=== PATIENT | female | born 1995 | race Caucasian/White ===

== ENCOUNTER → 2020-07-05 14:39 | Outpatient (BNVA) | payer BC, SELFPAY | PROVIDERS: Visit Provider Obstetrics & Gynecology | DX: N76.0 Acute vaginitis (principal); Z12.4 Encounter for screening for malignant neoplasm of cervix; Z11.3 Encounter for screening for infections with a predominantly sexual mode of transmission; B96.89 Other specified bacterial agents as the cause of diseases classified elsewhere | CPT/HCPCS: 87210; 87491; 87591; 88175 ==

== ENCOUNTER → 2021-03-20 13:04 | Outpatient (BNVA) | payer BC, SELFPAY | PROVIDERS: Visit Provider Obstetrics & Gynecology | DX: Z34.90 Encounter for supervision of normal pregnancy, unspecified, unspecified trimester (principal) | CPT/HCPCS: 81025; 84702 ==

== ENCOUNTER → 2021-04-04 14:22 | Outpatient (BNVA) | payer BC, SELFPAY | PROVIDERS: Visit Provider Obstetrics & Gynecology | DX: O20.9 Hemorrhage in early pregnancy, unspecified (principal) | CPT/HCPCS: 84702; 85025; 86850; 86900 ==

== ENCOUNTER 2021-04-07 16:51 | Outpatient (CLI) | payer BC, SELFPAY ==
[2021-04-07 18:03] LABS: HCG Quantitative 72.73 mIU/mL
== END 2021-04-07 16:52 | disposition home or self-care (01) ==
PROVIDERS: Visit Provider Obstetrics & Gynecology
DX: O20.0 Threatened abortion (principal)
CPT/HCPCS: 36415; 84702

== ENCOUNTER 2021-04-09 08:19 | Outpatient (CLI) | payer BC, SELFPAY ==
--- NOTE | 2021-04-09 08:29 | US_ITS ---
WS: [id number] TRANSABDOMINAL PELVIC AND TRANSVAGINAL PELVIC ULTRASOUND HISTORY: O26.91 - related conditions, unspecified, vaginal bleeding. COMPARISON: None available. Uterus: 8.3 cm x 5.5 cm x 4.2 cm. Normal size anteverted uterus. Cervix is closed. No fibroid or mass . Endometrium: 0.5 cm. Normal endometrium. No intrauterine gestation. No thickening of the endometrium or hyperplasia. Right ovary: 2.3 cm x 2.8 cm x 1.0 cm. Normal size and echogenicity. No adnexal mass. Left ovary: 3.0 cm x 1.4 cm x 3.2 cm. Normal size and echogenicity. No adnexal masses. Very tiny amount of free fluid in the cul-de-sac. US/US pelvic with transvaginal IMPRESSION: 1. No intrauterine gestation identified. 2. No adnexal mass. 3. Normal pelvic ultrasound.
[2021-04-09 10:31] LABS: Alanine Aminotransferase 24 U/L (0-33); Alkaline Phosphatase 69 IU/L (35-105); Anion Gap 10.8 (5-19); Aspartate Amino Transferase 21 U/L (0-32); Blood Urea Nitrogen 7 mg/dL (6-20); Calcium 8.4 mg/dL (8.5-10.5); Carbon Dioxide 25 mmol/L (22-29); Chloride 104 mmol/L (98-107); Globulin 2.8 g/dL (1.3-4.6); Glucose 100 mg/dL (65-115); Osmolality Calculated 280 mOsm/kg (285-295); Potassium 3.8 mmol/L (3.5-5.1); Sodium 136 mmol/L (136-145); Total Bilirubin 0.3 mg/dL (0.15-1.2); Total Protein 6.8 g/dL (6.6-8.7)
== END 2021-04-09 08:20 | disposition home or self-care (01) ==
PROVIDERS: Visit Provider Obstetrics & Gynecology
DX: O26.91 Pregnancy related conditions, unspecified, first trimester (principal); N93.9 Abnormal uterine and vaginal bleeding, unspecified
CPT/HCPCS: 36415; 76830; 76856; 80053; 84702

== ENCOUNTER → 2021-04-14 16:15 | Outpatient (BNVA) | payer BC, SELFPAY | PROVIDERS: Visit Provider Obstetrics & Gynecology | DX: O03.9 Complete or unspecified spontaneous abortion without complication (principal) | CPT/HCPCS: 84702 ==

== ENCOUNTER → 2021-04-24 08:11 | Outpatient (BNVA) | payer BC, SELFPAY | PROVIDERS: Visit Provider Obstetrics & Gynecology | DX: O03.9 Complete or unspecified spontaneous abortion without complication (principal) | CPT/HCPCS: 84702 ==

== ENCOUNTER → 2021-04-30 09:57 | Outpatient (BNVA) | payer BC, SELFPAY | PROVIDERS: Visit Provider Obstetrics & Gynecology | DX: O03.9 Complete or unspecified spontaneous abortion without complication (principal) | CPT/HCPCS: 84702 ==